=== PATIENT | male | born 1965 | race Asian ===

== ENCOUNTER 2022-02-26 10:39 | Emergency (ER) | payer OTHER ==
[~2022-02-26] VITALS: Ht 177.8 cm; Wt 117.9 kg
[2022-02-26 10:42] VITALS: TEMP 98.4
[2022-02-26 11:38] LABS: PLATELET COUNT 197 K/uL (142-355)
[2022-02-26 11:41] LABS: POTASSIUM 3.7 mmol/L (3.6-5.2)
[2022-02-26 12:36] VITALS: BP 161/98
== END 2022-02-26 12:36 | disposition home or self-care (01) ==
LOC: ED 10:39
PROVIDERS: Emergency Medicine
DX: R25.9 Unspecified abnormal involuntary movements (principal); F10.90 Alcohol use, unspecified, uncomplicated
CPT/HCPCS: 80053; 80307; 80320; 81002; 82150; 83690; 85027; 99283